=== PATIENT | male | born 1945 | race African-American/Black ===

== ENCOUNTER 2016-05-10 09:07 | Emergency (ER) | payer MEDICARE, OTHER ==
[~2016-05-10] VITALS: Ht 193 cm; Wt 137.0 kg
[~2016-05-10 09:07] MED LIST: ACET250T3 PO; ALBU1AER INH; ASPI81TA82 PO; GLIP10 PO; KCL10C PO; LORTA10 PO; NIFE1TAB86 PO; NRSS SQ; SYMB160A INH; WARF5 PO
[2016-05-10 09:12] VITALS: BP 125/64; PULSE 98; RESP 17; TEMP 97.8; O2SAT 98
[2016-05-10] MEDS ORDERED: GLIP10TA6 PO (09:21)
[2016-05-10] MEDS ORDERED: ERGO1CAP10 PO (09:21)
[2016-05-10] MEDS ORDERED: NIFE15TA PO (09:25)
[2016-05-10] MEDS ORDERED: SITA50 PO (09:25)
[2016-05-10] MEDS ORDERED: TIZA4CAP3 PO (09:25)
[2016-05-10] MEDS ORDERED: TRAM50TA PO (09:25)
[2016-05-10] MEDS ORDERED: ACET250T3 PO (09:25)
[2016-05-10] MEDS ORDERED: ATOR1TAB18 PO (09:25)
[2016-05-10] MEDS ORDERED: PANT20 PO (09:25)
[2016-05-10] MEDS ORDERED: ALBUAER3 INH (09:25)
[2016-05-10] MEDS ORDERED: WARF4TAB51 PO (09:25)
[2016-05-10] MEDS ORDERED: FURO1TAB60 PO (09:25)
[2016-05-10] MEDS ORDERED: LISI2.5T3 PO (09:25)
[2016-05-10] MEDS ORDERED: POTA10TA2 PO (09:25)
[2016-05-10] MEDS ORDERED: ORPHENADRINE INJ 60 MG/2 ML AMP IM ONE (10:00)
--- NOTE | 2016-05-10 10:31 | PD ---
HPI Chief Complaint: Back/ Neck Pain or Injury Time Seen by Provider: 09:39 Travel History International Travel<30 days: No Contact w/Intl Traveler<30days: No Traveled to known affect area: No History of Present Illness HPI This patient complains of back spasms. Located in bilateral lumbar region. Denies acute injury. Says he has had back spasms on and off for the last 20 years. He says he gets flares like this about every 2 months. Denies fever or urinary complaint. 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 CLOGGED ARTERIES) Diabetes: Yes Patient Takes Glucophage: No Diminished Hearing: No Endocrine: Yes Gastrointestinal Disorders: No GERD: No Genitourinary: No Headaches: No Hepatitis: No Hiatal Hernia: No Hypertension: Yes Immune Disorder: No Implanted Vascular Access Dvce: Yes Musculoskeletal: Yes Neurologic: Yes Psychiatric: No Reproductive: No Respiratory: Yes ("blood clot in lungs") Migraines: No Myocardial Infarction: No Radiation Therapy: No Seizures: No Thyroid Disease: No Ulcer: No Tetanus Vaccination: > 5 Years Past Surgical History Abdominal Surgery: No AICD: No Appendectomy: Yes Arteriovenous Shunt: No Body Medical Devices: SPACER IN RT KNEE Cardiac Surgery: No Cholecystectomy: No Ear Surgery: No Endocrine Surgery: Yes (TONSILLECTOMY) Eye Surgery: No Genitourinary Surgery: Yes (APPENDECTOMY) Gynecologic Surgery: No Insulin Pump: No Joint Replacement: Yes (RT KNEE) Neurologic Surgery: Yes (REMOVAL NERVE LEFT HAND) Oral Surgery: No Pacemaker: No Thoracic Surgery: No Tonsillectomy: Yes Other Surgery: Yes Social History Alcohol Use: No Tobacco Use: No Substance Use: No Allergies-Medications (Allergen,Severity, Reaction): Coded Allergies: *MDRO Multi-Drug Resistant Organism (Verified Allergy, Unknown, 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 Reported Meds & Prescriptions Reported Meds & Active Scripts Active Reported Atorvastatin (Atorvastatin Calcium) 80 Mg Tab 80 Mg PO HS Proair Hfa 8.5 GM Inh (Albuterol Sulfate) 90 Mcg/Act Aer 1 Puff INH Q4H PRN 108 mcg/actuation Januvia (Sitagliptin Phosphate) 50 Mg Tab 50 Mg PO DAILY Nifedical XL (Nifedipine) 60 Mg Tab 60 Mg PO DAILY Potassium Chloride ER (Potassium Chloride) 10 Meq Tab 10 Meq PO BID Acetazolamide 250 Mg Tab 250 Mg PO DAILY Tizanidine (Tizanidine HCl) 4 Mg Cap 4 Mg PO TID Tramadol (Tramadol HCl) 50 Mg Tab 50 Mg PO Q6H PRN Protonix (Pantoprazole Sodium) 20 Mg Tab 20 Mg PO DAILY Warfarin 2 Mg Tab 2 Mg PO DAILY Lisinopril 2.5 Mg Tab 2.5 Mg PO DAILY Lasix (Furosemide) 40 Mg Tab 40 Mg PO BID Vitamin D (Ergocalciferol) 50,000 Unit Cap 50,000 Units PO Q7D Glipizide 10 Mg Tab 10 Mg PO BIDAC Take 30 minutes before a meal Review of Systems General / Constitutional: No: Fever HENT: No: Headaches Cardiovascular: No: Chest Pain or Discomfort Respiratory: No: Cough Physical Exam Narrative GENERAL: Well-nourished, well-developed patient in no apparent distress. SKIN: Focused skin assessment reveals no rash and nodules. Skin is Warm and dry. HEAD: Atraumatic. Normocephalic. EYES: Pupils equal and round. No scleral icterus. No injection or drainage. ENT: No nasal bleeding or discharge. Mucous membranes pink and moist. NECK: Trachea midline. No JVD. CARDIOVASCULAR: Regular rate and rhythm. No murmur appreciated. RESPIRATORY: No accessory muscle use. Clear to auscultation. Breath sounds equal bilaterally. GASTROINTESTINAL: Abdomen soft, non-tender, nondistended. Hepatic and splenic margins not palpable. MUSCULOSKELETAL: No obvious deformities. No clubbing. No cyanosis. Prominent symmetric edema of the feet and lower legs without redness or warmth. He has chronic skin thickening. No midline tenderness of the back. No visible spasm or ecchymosis or asymmetry. Negative straight leg raise NEUROLOGICAL: Awake and alert. No obvious cranial nerve deficits. Motor grossly within normal limits. Normal speech. PSYCHIATRIC: Appropriate mood and affect; insight and judgment normal. Data Data Last Documented VS Vital Signs Date Time Temp Pulse Resp B/P Pulse Ox O2 Delivery O2 Flow Rate FiO2 05/10/16 09:16 98 17 05/10/16 09:12 97.8 125/64 98 Orders Orphenadrine Inj (Norflex Inj) (05/10/16 10:00) [facility] Medical Decision Making Medical Screen Exam Complete: Yes Emergency Medical Condition: Yes Medical Record Reviewed: Yes Differential Diagnosis Lumbar strain, myalgias, back spasm, sciatica Narrative Course I have reviewed the patient's electronic medical record. Patient is at neurologic baseline. He has chronic back trouble and reports this is similar to his usual flares No red flags to suggest emergent imaging is indicated. I gave him injection of Norflex Prescription given for 12 pills to use as needed Diagnosis Primary Impression: Low back pain Qualified Code: M54.5 - Acute bilateral low back pain without sciatica Additional Instructions: The patient was advised to follow up with their physician and return if they worsen. The patient was warned about potential sedation for the medications they will receive on prescription. Elevate legs Use low-sodium diet Wear knee-high compression stockings Med/Other Pt SpecificInfo: Prescription(s) given Scripts Orphenadrine ER 12 HR (Orphenadrine CR)100 Mg Dpb304 Mg PO Q12HR #12 TAB Ref 0 Prov:Nando Cain MD 05/10/16 Disposition: DISCHARGE HOME Condition: Stable Nando Cain MD May 10, 2016 10:31
[2016-05-10] MEDS ORDERED: ORPH100T99 PO (10:36)
[2016-05-10 11:21] VITALS: BP 130/77; TEMP 98.1
== END 2016-05-10 11:33 | disposition home or self-care (01) ==
LOC: NEPA 09:07
DX: M54.5 Low back pain (principal); I10 Essential (primary) hypertension; E11.8 Type 2 diabetes mellitus with unspecified complications; Z79.01 Long term (current) use of anticoagulants
CPT/HCPCS: 96372; 99283; J2360